=== PATIENT | female | born 1965 | race Caucasian/White ===

== ENCOUNTER → 2018-10-18 | Outpatient (CLI) | payer OTHER | LOC: EMCIMAGING 14:48 | PROVIDERS: ATTEND Podiatrist | DX: M76.822 Posterior tibial tendinitis, left leg (principal); S86.312A Strain of muscle(s) and tendon(s) of peroneal muscle group at lower leg level, left leg, initial encounter; S93.492A Sprain of other ligament of left ankle, initial encounter; M24.10 Other articular cartilage disorders, unspecified site | CPT/HCPCS: 7372PN ==